=== PATIENT | male | born 1955 | race Caucasian/White ===

== ENCOUNTER → 2018-10-19 10:20 | Outpatient (CLI) | payer OTHER, SELFPAY ==
[2018-10-19 11:01] LABS: Add Manual Diff / Slide Review NO; Basophils Absolute Auto 0 /uL (0-100); Basophils Percent Auto 0.8 % (0-2); Eosinophils Absolute Auto 300 /uL (0-450); Eosinophils Percent Auto 5.9 % (2-4); Hematocrit 43.1 % (41-53); Hemoglobin 14.7 g/dL (13.5-17.5); Lymphocytes Absolute Auto 1500 /uL (1100-4500); Lymphocytes Percent Auto 31.9 % (25-40); Mean Corpuscular HGB Conc 34.1 % (30-36); Mean Corpuscular Hemoglobin 32.7 PG (26-34); Mean Corpuscular Volume 96.1 fL (80-100); Monocytes Absolute Auto 600 /uL (0-900); Monocytes Percent Auto 12.3 % (3-14); Neutrophils Absolute Auto 2300 /uL (1500-7000); Neutrophils Percent Auto 49.1 % (50-75); Platelet Count 145 X10^3/uL (150-400); Red Blood Cell Count 4.48 X10^6/uL (4.5-5.9); Red Cell Distribution Width 12.9 % (11.6-14.8); White Blood Cell Count 4.8 X10^3/uL (4.5-11.0)
[2018-10-19 11:18] LABS: Alanine Aminotransferase 30 IU/L (21-72); Albumin 4.4 g/dL (3.5-5.0); Albumin Globulin Ratio 1.4 (1.0-2.8); Alkaline Phosphatase 53 U/L (38-126); Aspartate Aminotransferase 25 IU/L (17-59); BUN Creatinine Ratio 21.1 (6-22); Bilirubin Total 0.9 mg/dL (0.2-1.3); Blood Urea Nitrogen 19 mg/dL (9-20); Carbon Dioxide 27 mmol/L (22-32); Chloride 103 mmol/L (98-107); Cholesterol 188 mg/dL (140-199); Estimated Glomerular Filt Rate > 60.0 mL/min (>60); Globulin 3.1 g/dL (1.7-4.1); Glucose 99 mg/dL (80-110); HDL Cholesterol 55 mg/dL (40-60); HEMOLYSIS < 15 (0-50); LDL Cholesterol Calculated 102 mg/dL (<100); Potassium 5.1 mmol/L (3.4-5.1); Sodium 139 mmol/L (137-145); Total Protein 7.5 g/dL (6.3-8.2); Triglycerides 154 mg/dL (35-150)
[2018-10-19 11:48] LABS: Prostate Specific Antigen Scrn 3.24 ng/mL (0.1-4.0)
== END ==
PROVIDERS: PCP Family Medicine; Visit Provider Family Medicine
DX: E78.5 Hyperlipidemia, unspecified (principal); Z12.5 Encounter for screening for malignant neoplasm of prostate
CPT/HCPCS: 36415; 80053; 80061; 85025; G0103

== ENCOUNTER → 2018-12-06 07:35 | Outpatient (CLI) | payer OTHER, SELFPAY ==
--- NOTE | 2018-12-06 08:49 | PM.TREADMILL ---
Cardiac Stress Test Report Referral & Results Date Patient Seen: 12/06/18 Time Patient Seen: 08:30 Requesting provider: Juan Riley Indication: SOB Rest ECG: NSR Procedure Note: Today following both written and verbal informed consent, the patient was exercised according to a standard Luis protocol. The patient exercised for a total of 9 minutes achieving a maximum heart rate of 157. Patient's maximum systolic blood pressure was 180. This was an estimated 10.1 METs. O2 saturation was greater than 95% at all times. Impression: Low probability for ischemia. Yun treadmill score 9 predicts 97% survival over 5 years. Please note: Actual ECG tracings can be found in the PACS system.
== END ==
PROVIDERS: PCP Family Medicine; Visit Provider Family Medicine
DX: R06.02 Shortness of breath (principal)
CPT/HCPCS: 93016; 93017; 93018

== ENCOUNTER 2019-02-08 08:46 | Day surgery (SDC) | payer OTHER, SELFPAY ==
[2019-02-08 09:24] VITALS: BP 138/97; PULSE 87; RESP 15; TEMP 36.4; O2SAT 96; BMI 35.8
[2019-02-08] MEDS: SODIUM CHLORIDE 0.9% 1,000 ML 200 ML IV (09:32)
--- NOTE | 2019-02-08 09:43 | PM.HP.1 ---
History of Present Illness History of Present Illness Date Patient Seen: 02/08/19 Time Patient Seen: 09:43 Chief complaint: [id number] Narrative: This is a 63-year-old man with history of a colonoscopy at age 46 because of high risk family history. At that time he was told he had no polyps and no findings on his colonoscopy and he could have a repeat colonoscopy in 10 years. Because extenuating circumstances he has not been able to schedule colonoscopy until now. He denies any symptoms of hematochezia, melena, unexplained weight loss, unexplained abdominal pain. His father was diagnosed with colon cancer at age 77. He says he is otherwise well, he has never had a heart attack or stroke. He recently had a cardiac stress test which was essentially normal. ROS: Review of systems positive for cough, shortness of breath (related to pneumonia 1 year ago), reflux symptoms, constipation, headaches, anxiety, urinary frequency, urgency, incontinence. Otherwise 10 system review was negative other than as mentioned in the HPI. PE: GENERAL: Well groomed and cooperative. Appears stated age. Answers questions promptly and appropriately. Vital signs noted. HENT: Normocephalic, atraumatic. Hearing intact. Oral mucosa is pink and moist. EYES: Conjunctiva pink, sclera white, no periorbital swelling. CARDIOVASCULAR: Regular rate. No pedal edema. RESPIRATORY: Non tachypneic, breathing comfortably on room air. GASTROINTESTINAL: Abdomen soft and non-distended GENITALURINARY: No flank tenderness. MUSCULOSKELETAL: Equal tone and mass bilaterally. SKIN: Warm, dry, soft, appropriate color for ethnicity. No other lesions, rashes, or wounds. NEURO: Alert and Oriented X 3. No gross sensory deficits, or cognitive issues. PSYCH: Appropriate affect and mood. Patient History Family & Social History Family History Father Cancer Mother Hypertension Mental health problem Sister Hypertension High cholesterol Stroke Social History: household members significant other,other Tobacco & Substance use: Smoking Status Never smoker Meds Home Medications and Allergies Home Medications Medication Instructions Recorded Confirmed Type lisinopril 20 mg tablet 20 mg PO QDAY #90 tab 09/10/18 02/08/19 Rx etodolac 400 mg tablet 400 mg PO BID PRN #60 tab 10/25/18 02/08/19 Rx fluoxetine 20 mg tablet 60 mg PO Q DAY #270 tab 10/25/18 02/08/19 Rx hydroxyzine HCl 25 mg tablet 25 mg PO Q6H PRN #180 tab 10/25/18 02/08/19 Rx lovastatin 20 mg tablet 20 mg PO DAILY #90 tab 10/25/18 02/08/19 Rx tamsulosin 0.4 mg capsule 0.8 mg PO QDAY #180 cap 10/25/18 02/08/19 Rx valacyclovir 500 mg tablet 500 mg PO QDAY #90 tab 10/25/18 02/08/19 Rx zolpidem 5 mg tablet 5 mg PO HS PRN #30 tab 10/25/18 02/08/19 Rx clonazepam 0.5 mg PO PRN PRN 02/08/19 02/08/19 History Allergies Allergy/AdvReac Type Severity Reaction Status Date / Time codeine Allergy Severe THROAT Verified 02/08/19 09:14 SWELLING Penicillins Allergy Mild REACTION Verified 02/08/19 09:14 A CHILD-UNKNOWN Exam Vital Signs (past 8 hours): - 02/08/19 09:24 Temperature 97.6 F Pulse Rate 87 Respiratory Rate 15 Blood Pressure 138/97 H Pulse Oximetry 96 Oxygen Delivery Method Room Air Assessment & Plan Assessment and plan (1) High risk for colon cancer: Current visit: Yes Status: Acute Assessment & Plan narrative: This is a 63-year-old man with elevated risk for colon cancer due to family history. He is here for high risk screening colonoscopy possible polypectomy. Risks and benefits of this procedure were discussed including bleeding, perforation, risks of anesthesia. The patient desires to proceed with colonoscopy and possible polypectomy. Plan: Proceed with the above as discussed Time Spent With Patient Time with patient: 25 - 35 minutes Quality VTE Deep Vein Thrombosis/Pulmonary Embolism Present on Admission: No
[2019-02-08] MEDS: fentaNYL 250 MCG/5 ML INJ IV (09:49)
[2019-02-08] MEDS: MIDAZOLAM 5 MG/5 ML VIAL IV (09:50)
--- NOTE | 2019-02-08 10:13 | PM.OP.ENDO ---
Operative Date/Time/Diagnoses Date of procedure: 02/08/19 Time of procedure: 10:13 Pre-op diagnosis: High risk family history for colon cancer Post-op diagnosis: same Procedure & Clinicians Study performed: High risk screening colonoscopy Same procedure as scheduled: Yes Indications: family history of colon cancer Surgeon: Veronika Daley Procedure Notes SCOAP/Timeout: Performed Procedure in detail: The patient was brought to the room and placed in left lateral decubitus position with all bony prominences padded. A time-out was performed and then the patient was given procedural sedation starting with 5 mg of Versed and [150] mcg of fentanyl. Vitals were monitored throughout the procedure and remained stable. Once adequately sedated the procedure was begun. A rectal exam was performed revealing [no abnormalities]. The colonoscope was then introduced to the rectum and advanced to the cecum in the usual fashion. []The cecum was identified by the appendiceal orifice, the mucosal try fold, and the ileocecal valve. The scope was then retracted while rotating side to side and examining each mucosal fold. [There was moderate diverticulosis in the right colon and severe diverticulosis in the left colon with signs of scarring secondary to diverticulitis. No active diverticulitis was seen at this time. Diverticula were small medium and large mouth and were found quite extensively throughout the descending and sigmoid colon. No polyps were seen.] At the conclusion procedure retroflexion was performed and [small grade 2 internal hemorrhoids without stigmata of bleeding were seen]. The scope was then withdrawn from the rectum the procedure was concluded. The patient tolerated the procedure well was transferred to the PACU in stable condition. Scope withdrawal time: 12 Sedation minutes: 24 Findings: diverticulosis Specimen(s): none sent Complications: none Impression: Extensive diverticulosis with scarring and thickening of the colon consistent with prior diverticulitis Post-procedure Recommendations: Colonscopy in 10 years Plan for aftercare: Add fiber supplement such as Metamucil or Benefiber once to twice daily Follow up: as needed Disposition: PACU
[2019-02-08 10:18] VITALS: BP 121/84; PULSE 74; RESP 15; TEMP 36.7; O2SAT 97
[2019-02-08 10:24] VITALS: BP 126/80; PULSE 79; RESP 13; O2SAT 96
[2019-02-08 10:28] VITALS: BP 133/93; PULSE 89; RESP 15; O2SAT 95
[2019-02-08 10:34] VITALS: BP 121/80; PULSE 77; RESP 16; TEMP 36.3; O2SAT 95
[2019-02-08 10:50] VITALS: BP 131/78; PULSE 77; RESP 16; O2SAT 97
== END 2019-02-08 10:50 | disposition home or self-care (01) ==
PROVIDERS: Family Provider Family Medicine; PCP Family Medicine; Visit Provider Surgery
PROC: 0DJD8ZZ Inspection of Lower Intestinal Tract, Via Natural or Artificial Opening Endoscopic (ICD-10-PCS; CPT 45378; principal; 2019-02-08 09:45)
DX: Z12.11 Encounter for screening for malignant neoplasm of colon (principal); Z80.0 Family history of malignant neoplasm of digestive organs; K57.30 Diverticulosis of large intestine without perforation or abscess without bleeding; K64.0 First degree hemorrhoids
CPT/HCPCS: 45378; 99152; J2250; J3010

== ENCOUNTER → 2020-05-14 16:36 | Outpatient (CLI) | payer OTHER, SELFPAY ==
[2020-05-14 17:19] LABS: Add Manual Diff / Slide Review NO; Basophils Absolute Auto 100 /uL (0-100); Basophils Percent Auto 0.9 % (0-2); Eosinophils Absolute Auto 300 /uL (0-450); Eosinophils Percent Auto 4.9 % (2-4); Hematocrit 42.4 % (41-53); Lymphocytes Absolute Auto 1700 /uL (1100-4500); Lymphocytes Percent Auto 25.9 % (25-40); Mean Corpuscular Hemoglobin 31.6 PG (26-34); Monocytes Absolute Auto 800 /uL (0-900); Neutrophils Absolute Auto 3600 /uL (1500-7000); Neutrophils Percent Auto 56.3 % (50-75); Platelet Count 165 X10^3/uL (150-400); Red Blood Cell Count 4.42 X10^6/uL (4.5-5.9); Red Cell Distribution Width 12.8 % (11.6-14.8); White Blood Cell Count 6.4 X10^3/uL (4.5-11.0)
[2020-05-14 17:36] LABS: Alanine Aminotransferase 22 IU/L (<50); Albumin 4.5 g/dL (3.5-5.0); Albumin Globulin Ratio 1.4 (1.0-2.8); Alkaline Phosphatase 65 U/L (38-126); Aspartate Aminotransferase 28 IU/L (17-59); BUN Creatinine Ratio 22.8 (6-22); Bilirubin Total 0.3 mg/dL (0.2-1.3); Blood Urea Nitrogen 23 mg/dL (9-20); Calcium 10.1 mg/dL (8.4-10.2); Carbon Dioxide 29 mmol/L (22-32); Chloride 103 mmol/L (98-107); Estimated Glomerular Filt Rate > 60.0 mL/min (>60); Globulin 3.3 g/dL (1.7-4.1); Glucose 104 mg/dL (80-110); HEMOLYSIS < 15 (0-50); Potassium 4.5 mmol/L (3.4-5.1); Sodium 139 mmol/L (137-145); Total Protein 7.8 g/dL (6.3-8.2)
[2020-05-14 17:53] LABS: Vitamin D 25 Hydroxy (D3) 22.8 ng/mL (30.0-100.0)
[2020-05-14 18:05] LABS: Prostate Specific Antigen Scrn 4.55 ng/mL (0.1-4.0)
== END ==
PROVIDERS: Family Provider Family Medicine; PCP Student in an Organized Health Care Education/Training Program; Referring Provider Student in an Organized Health Care Education/Training Program; Visit Provider Student in an Organized Health Care Education/Training Program
DX: I10 Essential (primary) hypertension (principal); R73.9 Hyperglycemia, unspecified; Z12.5 Encounter for screening for malignant neoplasm of prostate; Z79.899 Other long term (current) drug therapy; E55.9 Vitamin D deficiency, unspecified
CPT/HCPCS: 36415; 80053; 82306; 85025; G0103

== ENCOUNTER → 2022-05-23 15:54 | Outpatient (CLI) | payer MEDICARE, OTHER, SELFPAY ==
[2022-05-23 16:54] LABS: Add Manual Diff / Slide Review NO; Basophils Absolute Auto 0 /uL (0-100); Basophils Percent Auto 0.7 % (0-2); Eosinophils Absolute Auto 200 /uL (0-450); Eosinophils Percent Auto 5.5 % (2-4); Hematocrit 42.5 % (41-53); Hemoglobin 14.5 g/dL (13.5-17.5); Lymphocytes Absolute Auto 1400 /uL (1100-4500); Lymphocytes Percent Auto 32.9 % (25-40); Mean Corpuscular Hemoglobin 32.6 PG (26-34); Mean Corpuscular Volume 95.8 fL (80-100); Monocytes Absolute Auto 600 /uL (0-900); Monocytes Percent Auto 15.6 % (3-14); Neutrophils Absolute Auto 1900 /uL (1500-7000); Neutrophils Percent Auto 45.3 % (50-75); Platelet Count 150 X10^3/uL (150-400); Red Blood Cell Count 4.43 X10^6/uL (4.5-5.9); Red Cell Distribution Width 13.1 % (11.6-14.8); White Blood Cell Count 4.2 X10^3/uL (4.5-11.0)
[2022-05-23 17:04] LABS: Alanine Aminotransferase 35 IU/L (<50); Albumin 4.4 g/dL (3.5-5.0); Albumin Globulin Ratio 1.3 (1.0-2.8); Alkaline Phosphatase 58 U/L (38-126); Aspartate Aminotransferase 32 IU/L (17-59); BUN Creatinine Ratio 15.9 (6-22); Bilirubin Total 0.7 mg/dL (0.2-1.3); Blood Urea Nitrogen 13 mg/dL (9-20); Calcium 9.8 mg/dL (8.4-10.2); Carbon Dioxide 28 mmol/L (22-32); Chloride 103 mmol/L (98-107); Cholesterol 184 mg/dL (140-199); Estimated Glomerular Filt Rate > 60 mL/min (>60); Globulin 3.5 g/dL (1.7-4.1); Glucose 95 mg/dL (80-110); HDL Cholesterol 48 mg/dL (40-60); HEMOLYSIS < 15 (0-50); LDL Cholesterol Calculated 86 mg/dL (<100); Potassium 4.4 mmol/L (3.4-5.1); Sodium 139 mmol/L (137-145); Total Protein 7.9 g/dL (6.3-8.2); Triglycerides 251 mg/dL (35-150)
[2022-05-23 17:24] LABS: Vitamin D 25 Hydroxy (D3) 26.4 ng/mL (30.0-100.0)
[2022-05-23 17:31] LABS: Prostate Specific Antigen Scrn 4.19 ng/mL (0.1-4.0)
[2022-05-23 17:36] LABS: TSH w/ Reflex to FT4 1.96 uIU/mL (0.47-4.68)
[2022-05-23 18:00] LABS: Hep C Virus Ab w/Reflex Quant NEGATIVE s/c (NEGATIVE)
[2022-06-05 21:37] LABS: Testosterone % Fr + Wkly bound 10.8 % (9.0-46.0); Testosterone, Total 296.2 ng/dL (264.0-916.0)
== END ==
PROVIDERS: Family Provider Family Medicine; PCP Student in an Organized Health Care Education/Training Program; Referring Provider Student in an Organized Health Care Education/Training Program; Visit Provider Student in an Organized Health Care Education/Training Program
DX: I10 Essential (primary) hypertension (principal); Z12.5 Encounter for screening for malignant neoplasm of prostate; I16.0 Hypertensive urgency; E55.9 Vitamin D deficiency, unspecified; Z11.59 Encounter for screening for other viral diseases; N52.9 Male erectile dysfunction, unspecified
CPT/HCPCS: 36415; 80053; 80061; 82306; 84403; 84443; 85025; 86803; G0103

== ENCOUNTER → 2022-08-29 16:34 | Outpatient (CLI) | payer MEDICARE, OTHER, SELFPAY ==
--- NOTE | 2022-08-29 17:04 | DI.RAD.S_ITS ---
PROCEDURE: XR CHEST 2V INDICATIONS: LOMBARDI TECHNIQUE: 2 views of the chest were acquired. COMPARISON: [facility], , CHEST 1 VIEW, 06/28/2016, 16:48. FINDINGS: Surgical changes and devices: None. Lungs and pleura: Lungs are clear. No pleural effusions or pneumothorax. Mediastinum: Mediastinal contours are normal. Heart size is normal. Bones and chest wall: No suspicious bony abnormalities. Soft tissues appear unremarkable. IMPRESSION: No acute cardiopulmonary pathology. Dictated by: Luis A Raines M.D. on 08/30/2022 at 9:00 Approved by: Luis A Raines M.D. on 08/30/2022 at 9:12
[2022-08-29 18:06] LABS: Add Manual Diff / Slide Review NO; Basophils Absolute Auto 0 /uL (0-100); Basophils Percent Auto 0.6 % (0-2); Eosinophils Absolute Auto 100 /uL (0-450); Eosinophils Percent Auto 2.3 % (2-4); Hematocrit 43.8 % (41-53); Lymphocytes Absolute Auto 2100 /uL (1100-4500); Lymphocytes Percent Auto 36.5 % (25-40); Mean Corpuscular HGB Conc 34.3 % (30-36); Mean Corpuscular Hemoglobin 32.6 PG (26-34); Mean Corpuscular Volume 95.1 fL (80-100); Monocytes Absolute Auto 900 /uL (0-900); Monocytes Percent Auto 15.1 % (3-14); Neutrophils Absolute Auto 2600 /uL (1500-7000); Neutrophils Percent Auto 45.5 % (50-75); Platelet Count 167 X10^3/uL (150-400); Red Cell Distribution Width 12.9 % (11.6-14.8); White Blood Cell Count 5.7 X10^3/uL (4.5-11.0)
[2022-08-29 18:08] LABS: Alanine Aminotransferase 46 IU/L (<50); Albumin 4.8 g/dL (3.5-5.0); Albumin Globulin Ratio 1.4 (1.0-2.8); Alkaline Phosphatase 55 U/L (38-126); Aspartate Aminotransferase 37 IU/L (17-59); BUN Creatinine Ratio 20.2 (6-22); Bilirubin Total 0.7 mg/dL (0.2-1.3); Blood Urea Nitrogen 19 mg/dL (9-20); Calcium 9.9 mg/dL (8.4-10.2); Carbon Dioxide 26 mmol/L (22-32); Chloride 101 mmol/L (98-107); Creatine Kinase 68 U/L (55-170); Estimated Glomerular Filt Rate > 60 mL/min (>60); Globulin 3.4 g/dL (1.7-4.1); Glucose 99 mg/dL (80-110); HEMOLYSIS 20 (0-50); Potassium 4.2 mmol/L (3.4-5.1); Sodium 137 mmol/L (137-145); Total Protein 8.2 g/dL (6.3-8.2)
[2022-08-29 18:11] LABS: High Sensitivity CRP - Cardiac 0.4 mg/L (1.0-3.0)
[2022-08-29 18:39] LABS: Erythrocyte Sedimentation Rate 4 MM/HR (0-15)
== END ==
PROVIDERS: Family Provider Family Medicine; PCP Pediatrics; Referring Provider Pediatrics; Visit Provider Pediatrics
DX: I10 Essential (primary) hypertension (principal); R06.09 Other forms of dyspnea; R53.83 Other fatigue
CPT/HCPCS: 36415; 71046; 80053; 82550; 85025; 85651; 86140; 93005

== ENCOUNTER → 2022-09-21 13:44 | Outpatient (CLI) | payer MEDICARE, OTHER, SELFPAY ==
--- NOTE | 2022-09-21 13:46 | DI.ECHO.S_ITS ---
[facility]---------+ [facility] +---------+ : : [address] : : : : [id number] : : : : Phone: [phone]+ Echocardiogram Report + + :Name: TONY MASON Study Date: 09/21/2022 Height: 72 in : :[facility] ReadingLocation: Weight: 278 lb : : Gender: Male BSA: 2.5 m2 : :: 1955 Age: 67 yrs BP: 123/95 mmHg: :Reason For Study: DYSPNEA ON EXERTION : :Ordering Physician: TITUS, : :JIMMY Liu Performed By: Jayshree Li : :Referring: JIMMY QURESHI : + + Interpretation Summary 1) Normal left ventricular thickness, size, wall motion, and systolic function (EF 60-65%). 2) Upper normal right ventricular size with normal function. 3) There is mild aortic regurgitation. 4) The ascending aorta is severely enlarged at 5.2cm. 5) No prior Echo available for comparison. Procedure: A two-dimensional transthoracic echocardiogram with color flow and Doppler was performed. The study quality was technically adequate. There is no prior echocardiogram noted for this patient. The patient was in sinus rhythm with heart rates between 69-78 bpm during the exam. Left Ventricle: The left ventricle is normal in size and wall thickness. The ejection fraction is estimated to be 55-60%. There are no focal wall motion abnormalities. Right Ventricle: The right ventricle is at the upper limits of normal in size. The right ventricular systolic function is normal. Atria: The left atrial size is normal. Right atrial size is normal. There is no Doppler evidence for an interatrial shunt. Mitral Valve: The mitral valve leaflets appear borderline thickened, but open well. There is trace mitral regurgitation. Aortic Valve: The aortic valve is trileaflet. The aortic valve opens well. There is no aortic valve stenosis. There is mild aortic regurgitation. Tricuspid Valve: The tricuspid valve is normal in structure and function. There is trace tricuspid regurgitation. The right ventricular systolic pressure is estimated to be at least 21 mmHg based on an estimated right atrial pressure of 3 mm Hg. Pulmonic Valve: The pulmonic valve is not well visualized. There is no pulmonic valvular regurgitation. Great Vessels: The aortic root is moderately dilated. The ascending aorta is severely enlarged. The IVC is of normal diameter and collapses greater than 50% with a sniff. This suggests a low right atrial pressure of 3 mm Hg. Pericardium/ Pleura There is no pericardial effusion. There is no pleural effusion. MMode/2D Measurements & Calculations LVIDd: 4.6 cm LVOT diam: 2.2 cm LVIDs: 2.9 cm Ao root diam: 4.5 cm FS: 36.5 % asc Aorta Diam: 5.2 cm EPSS: 0.79 cm Ao Arch Diam (Prox Trans): 4.1 cm IVSd: 0.99 cm LVPWd: 0.92 cm LV beckman. diameter/BSA (cm/m^2): 1.9 LV sys. diameter/BSA (cm/m^2): 1.2 LA A2 area: 18.1 cm2 RA long axis: 5.1 cm LA A4 area: 9.7 cm2 RA area: 12.1 cm2 LA length (vol): 4.1 cm RA vol: 24.3 ml LA vol: 36.5 ml RA : 9.9 ml/m2 LA vol index: 14.9 ml/m2 IVC diam: 1.6 cm RVD1 (basal): 4.0 cm RVD2 (mid): 3.4 cm TAPSE: 2.3 cm Doppler Measurements & Calculations Ao V2 max: 139.3 cm/sec LVOT Max Vidal: 104.5 cm/sec Ao V2 mean: 103.7 cm/sec LV V1 max P.4 mmHg Ao max P.8 mmHg LV V1 VTI: 21.3 cm Ao mean P.7 mmHg JAVIER(I,D): 3.2 cm2 Ao V2 VTI: 25.6 cm JAVIER(V,D): 2.8 cm2 sev ratio: 0.83 JAVIER indexed to BSA (cm^2/m^2): 1.3 AI P1/2t: 940.5 msec AI dec slope: 139.8 cm/sec2 MV E max vidal: 47.2 cm/sec TR max vidal: 212.3 cm/sec MV A max vidal: 73.2 cm/sec TR max P.0 mmHg MV E/A: 0.64 PA V2 max: 86.8 cm/sec Med Peak E' Vidal: 4.4 cm/sec PA V2 mean: 62.7 cm/sec E/E' med: 10.7 PA mean P.8 mmHg Lat Peak E' Vidal: 10.0 cm/sec PA pr(Accel): 22.5 mmHg E/E' lat: 4.7 E/e' average: 7.7 MV dec time: 0.30 sec SV(LVOT): 81.0 ml Reading Physician:05:07 PM
== END ==
PROVIDERS: Family Provider Family Medicine; PCP Pediatrics; Referring Provider Pediatrics; Visit Provider Pediatrics
DX: I35.1 Nonrheumatic aortic (valve) insufficiency (principal); I77.89 Other specified disorders of arteries and arterioles; I77.810 Thoracic aortic ectasia; I10 Essential (primary) hypertension; R06.09 Other forms of dyspnea
CPT/HCPCS: 93306

== ENCOUNTER → 2022-10-05 11:45 | Outpatient (CLI) | payer MEDICARE, OTHER, SELFPAY ==
[2022-10-05 13:26] LABS: Add Manual Diff / Slide Review NO; Basophils Absolute Auto 0 /uL (0-100); Basophils Percent Auto 0.8 % (0-2); Eosinophils Absolute Auto 600 /uL (0-450); Eosinophils Percent Auto 10.8 % (2-4); Hematocrit 40.6 % (41-53); Hemoglobin 14.1 g/dL (13.5-17.5); Lymphocytes Absolute Auto 1900 /uL (1100-4500); Lymphocytes Percent Auto 33.8 % (25-40); Mean Corpuscular HGB Conc 34.8 % (30-36); Mean Corpuscular Hemoglobin 32.9 PG (26-34); Mean Corpuscular Volume 94.6 fL (80-100); Monocytes Absolute Auto 600 /uL (0-900); Neutrophils Absolute Auto 2500 /uL (1500-7000); Neutrophils Percent Auto 43.6 % (50-75); Platelet Count 144 X10^3/uL (150-400); Red Blood Cell Count 4.29 X10^6/uL (4.5-5.9); Red Cell Distribution Width 12.6 % (11.6-14.8); White Blood Cell Count 5.6 X10^3/uL (4.5-11.0)
[2022-10-05 13:49] LABS: BUN Creatinine Ratio 17.4 (6-22); Blood Urea Nitrogen 16 mg/dL (9-20); Calcium 9.4 mg/dL (8.4-10.2); Carbon Dioxide 27 mmol/L (22-32); Chloride 102 mmol/L (98-107); Cholesterol 184 mg/dL (140-199); Estimated Glomerular Filt Rate > 60 mL/min (>60); Glucose 93 mg/dL (80-110); HDL Cholesterol 44 mg/dL (40-60); HEMOLYSIS < 15 (0-50); LDL Cholesterol Calculated 88 mg/dL (<100); Potassium 4.5 mmol/L (3.4-5.1); Sodium 138 mmol/L (137-145); Triglycerides 262 mg/dL (35-150)
== END ==
PROVIDERS: Family Provider Family Medicine; PCP Pediatrics; Referring Provider Internal Medicine Cardiovascular Disease; Visit Provider Internal Medicine Cardiovascular Disease
DX: E78.5 Hyperlipidemia, unspecified (principal); I10 Essential (primary) hypertension
CPT/HCPCS: 36415; 80048; 80061; 85025

== ENCOUNTER → 2022-10-06 13:15 | Outpatient (CLI) | payer MEDICARE, OTHER, SELFPAY ==
--- NOTE | 2022-10-06 | DI.CT.S_ITS ---
PROCEDURE: CT ANGIO CHEST INDICATIONS: Other specified disorders of arteries and arterioles TECHNIQUE: After the administration of intravenous contrast, 2.5 mm thick sections acquired from the lung apices to the posterior lung bases. Maximum intensity projection (MIP) oblique sagittal reformats were then acquired parallel to the aortic arch. For radiation dose reduction, the following was used: automated exposure control. COMPARISON: None. FINDINGS: Aorta: Ascending aortic aneurysm present with the aorta measuring 5.2 cm in diameter measured at the level of the right pulmonary artery. At the arch, aortic diameter is 3.3 cm, diameter of proximal descending thoracic aorta is 2.7 cm, diameter of distal descending thoracic aorta is 2.6 cm. Mediastinum: No pericardial effusion. No mediastinal or hilar adenopathy by size criteria. Central pulmonary arteries are normal in size. Esophagus is normal in caliber. Lungs and pleura: No consolidation or pleural effusion. Bones and chest wall: No axillary adenopathy by size criteria. Multilevel degenerative change of the visualized spine. Abdomen: Visualized upper abdominal solid organs and bowel loops appear unremarkable. IMPRESSION: Ascending aortic aneurysm measuring up to 5.2 cm. Dictated by: Abdi Campos M.D. on 10/06/2022 at 15:30 Approved by: Abdi Campos M.D. on 10/06/2022 at 15:39
== END ==
PROVIDERS: Family Provider Family Medicine; PCP Pediatrics; Referring Provider Internal Medicine Cardiovascular Disease; Visit Provider Internal Medicine Cardiovascular Disease
DX: I71.21 Aneurysm of the ascending aorta, without rupture (principal); I77.89 Other specified disorders of arteries and arterioles
CPT/HCPCS: 71275; Q9967

== ENCOUNTER → 2023-03-31 17:20 | Outpatient (CLI) | payer MEDICARE, OTHER, SELFPAY ==
--- NOTE | 2023-03-31 17:22 | DI.RAD.S_ITS ---
PROCEDURE: XR CHEST 2V INDICATIONS: cough, fatigue, hx frequent pna TECHNIQUE: 2 views of the chest were acquired. COMPARISON: [facility], CR, XR CHEST 2V, 08/29/2022, 17:12. FINDINGS: Surgical changes and devices: None. Lungs and pleura: Multifocal opacities in the left mid and lower lung are concerning for pneumonia. No pleural effusions or pneumothorax. Mediastinum: Mediastinal contours are normal. Heart size is normal. Bones and chest wall: No suspicious bony abnormalities. Soft tissues appear unremarkable. IMPRESSION: Multifocal opacities in the left mid /lower lung zones are concerning for pneumonia. Recommend repeat radiographs in 4-6 weeks after definitive treatment to demonstrate resolution. Approved by: Saloni Heredia M.D. on 03/31/2023 at 18:01
== END ==
PROVIDERS: Family Provider Family Medicine; PCP Pediatrics; Referring Provider Student in an Organized Health Care Education/Training Program; Visit Provider Student in an Organized Health Care Education/Training Program
DX: R05.8 Other specified cough (principal); R05.1 Acute cough
CPT/HCPCS: 0241U; 71046

== ENCOUNTER → 2023-03-31 17:33 | Outpatient (CLI) | payer MEDICARE, OTHER, SELFPAY ==
[2023-03-31 18:46] LABS: Influenza A - CEPHEID Flu A NEGATIVE (NEGATIVE); Influenza B - CEPHEID Flu B NEGATIVE (NEGATIVE); Respiratory Syncytial Virus Negative (Negative)
[2023-03-31 18:47] LABS: COVID-19 CEPHEID 4-PLEX PCR Negative (Negative)
== END ==
PROVIDERS: Family Provider Family Medicine; PCP Pediatrics; Visit Provider Student in an Organized Health Care Education/Training Program
DX: R05.1 Acute cough (principal)
CPT/HCPCS: 0241U

== ENCOUNTER → 2023-08-25 12:20 | Outpatient (CLI) | payer MEDICARE, OTHER, SELFPAY ==
--- NOTE | 2023-08-25 12:22 | DI.ECHO.S_ITS ---
[facility] : : [address] : [place] [address] : : [id number] : : Phone: [phone] Echocardiogram Report + + :Name: TONY MASON Study Date: 08/25/2023 Height: 72 in : :Hospital ReadingLocation: Weight: 278 lb : : Gender: Male BSA: 2.5 m2 : :: 1955 Age: 68 yrs BP: 147/100 mmHg: :Reason For Study: OTHER SPECIFIED DISORDERS OF ARTERIES AND : :ARTERIOLS : :Ordering Physician: JENNIFER, : :SOFIYA Performed By: Jayshree Li : :Referring: SOFIYA TIWARI : + + Interpretation Summary 1) Upper normal left ventricular size with low normal systolic function (EF 50-55%). 2) Normal right ventricular size and function. 3) There is mild to moderate aortic regurgitation. 4) The ascending aorta is severely enlarged at 5.4cm-5.5cm. 5) Compared to the Echo done 09/21/2022, ascending aorta enlargement has increased from 5.2cm to 5.4-5.5cm. Recommend CTA chest for further evaluation. Procedure: A two-dimensional transthoracic echocardiogram with color flow and Doppler was performed. The study quality was technically adequate. Comparison is made with the echocardiogram of 09/21/2022. The patient was in sinus rhythm with heart rates between 58-69 bpm during the exam. Left Ventricle: The left ventricle is normal in size and wall thickness. The ejection fraction is estimated to be 50-55%. Right Ventricle: The right ventricle is normal in size and function. Atria: The left atrial size is normal. Right atrial size is normal. There is no Doppler evidence for an interatrial shunt. Mitral Valve: The mitral valve is normal in structure and function. There is trace mitral regurgitation. Aortic Valve: The aortic valve is trileaflet. The aortic valve opens well. There is no aortic valve stenosis. There is mild to moderate aortic regurgitation. Tricuspid Valve: The tricuspid valve is normal in structure and function. There is trace tricuspid regurgitation. The right ventricular systolic pressure is estimated to be at least 25 mmHg based on an estimated right atrial pressure of 3 mm Hg. Pulmonic Valve: The pulmonic valve is not well visualized. There is no pulmonic valvular regurgitation. Great Vessels: The aortic root is moderately dilated. The ascending aorta is severely enlarged. The IVC is of normal diameter and collapses greater than 50% with a sniff. This suggests a low right atrial pressure of 3 mm Hg. Pericardium/ Pleura There is no pericardial effusion. There is no pleural effusion. MMode/2D Measurements & Calculations LVIDd: 5.8 cm LVOT diam: 2.2 cm LVIDs: 3.6 cm Ao root diam: 4.5 cm FS: 37.0 % asc Aorta Diam: 5.4 cm IVSd: 0.84 cm Ao Arch Diam (Prox Trans): 3.6 cm LVPWd: 0.89 cm LV beckman. diameter/BSA (cm/m^2): 2.4 LV sys. diameter/BSA (cm/m^2): 1.5 LA A2 area: 23.2 cm2 RA long axis: 6.1 cm LA A4 area: 16.0 cm2 RA area: 17.5 cm2 LA length (vol): 5.1 cm RA vol: 43.2 ml LA vol: 62.4 ml RA : 17.6 ml/m2 LA vol index: 25.5 ml/m2 IVC diam: 1.7 cm RVD1 (basal): 3.4 cm TAPSE: 1.9 cm Doppler Measurements & Calculations Ao V2 max: 131.7 cm/sec LVOT Max Vidal: 104.2 cm/sec Ao V2 mean: 92.5 cm/sec LV V1 max P.3 mmHg Ao max P.9 mmHg LV V1 VTI: 23.0 cm Ao mean P.8 mmHg JAVIER(I,D): 3.1 cm2 Ao V2 VTI: 28.9 cm JAVIER(V,D): 3.1 cm2 sev ratio: 0.80 JAVIER indexed to BSA (cm^2/m^2): 1.3 AI P1/2t: 824.0 msec AI dec slope: 165.2 cm/sec2 MV E max vidal: 39.7 cm/sec TR max vidal: 231.7 cm/sec MV A max vidal: 57.8 cm/sec TR max P.5 mmHg MV E/A: 0.69 PA V2 max: 96.5 cm/sec Med Peak E' Vidal: 3.9 cm/sec PA V2 mean: 72.7 cm/sec E/E' med: 10.2 PA mean P.2 mmHg Lat Peak E' Vidal: 7.9 cm/sec PA pr(Accel): 27.6 mmHg E/E' lat: 5.0 E/e' average: 7.6 MV dec time: 0.36 sec SV(LVOT): 89.4 ml Reading Physician:04:08 PM
== END ==
PROVIDERS: Family Provider Family Medicine; PCP Family Medicine; Referring Provider Internal Medicine Cardiovascular Disease; Visit Provider Internal Medicine Cardiovascular Disease
DX: I35.1 Nonrheumatic aortic (valve) insufficiency (principal); I77.810 Thoracic aortic ectasia; I77.89 Other specified disorders of arteries and arterioles
CPT/HCPCS: 93306

== ENCOUNTER → 2023-09-04 10:17 | Outpatient (CLI) | payer MEDICARE, OTHER, SELFPAY ==
--- NOTE | 2023-09-04 10:19 | DI.CT.S_ITS ---
PROCEDURE: CT ANGIO CHEST INDICATIONS: Ascending aorta enlargement TECHNIQUE: After the administration of intravenous contrast, 2.5 mm thick sections acquired from the lung apices to the posterior lung bases. Maximum intensity projection (MIP) oblique sagittal reformats were then acquired parallel to the aortic arch. For radiation dose reduction, the following was used: automated exposure control. COMPARISON: [facility], CT, CT ANGIO CHEST, 10/06/2022, 13:30. FINDINGS: Image quality: Excellent. Aorta: The aortic root at the sinus of Valsalva measures 4.8 cm and the ascending thoracic aorta measures 5.2 cm in diameter. On the comparison CT dated October 06, 2022, the aortic root measures 4.6 cm in diameter at the sinus of Valsalva and 5.2 cm more superiorly. No atheromatous plaque or calcification. No aortic dissection. No wall thickening or periaortic fat stranding. Lower Neck: No enlarged lymph nodes. Thyroid: No thyroid nodules which require sonographic follow up, per consensus guidelines. Axillae: No enlarged lymph nodes. Chest Wall: Unremarkable. Bones: Unremarkable. Lungs and Pleura: No pneumothorax or pleural effusions. No consolidation or suspicious nodules. Heart: Heart size is normal. No pericardial effusion. Thoracic Vessels: Pulmonary arteries demonstrate normal size. Mediastinum and Izabel: No enlarged lymph nodes. Esophagus: No wall thickening. No hiatal hernia. Upper Abdomen: Visualized upper abdomen solid organs and bowel loops appear normal. IMPRESSION: 1. 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 There is a slight increase (2 mm) in the extent of ectasia at the sinus of Valsalva when compared with the prior study dated October 06, 2022. 2. No acute airspace opacities or pulmonary nodules which require follow-up. Dictated by: Wen Honeycutt M.D. on 09/04/2023 at 14:35 Approved by: Wen Honeycutt M.D. on 09/04/2023 at 14:45
[2023-09-04 10:45] LABS: Estimated Glomerular Filt Rate > 60 mL/min (>60)
== END ==
LOC: CT 10:18
PROVIDERS: Radiology Diagnostic Radiology; Family Provider Family Medicine; PCP Family Medicine; Referring Provider Internal Medicine Cardiovascular Disease; Visit Provider Internal Medicine Cardiovascular Disease
DX: I77.810 Thoracic aortic ectasia (principal); I77.89 Other specified disorders of arteries and arterioles
CPT/HCPCS: 36415; 71275; 82565; Q9967

== ENCOUNTER → 2023-10-18 12:25 | Outpatient (CLI) | payer MEDICARE, OTHER, SELFPAY ==
[2023-10-18 14:19] LABS: Add Manual Diff / Slide Review NO; Basophils Absolute Auto 0 /uL (0-100); Basophils Percent Auto 0.4 % (0-2); Eosinophils Absolute Auto 200 /uL (0-450); Eosinophils Percent Auto 2.5 % (2-4); Hematocrit 40.4 % (41-53); Lymphocytes Absolute Auto 1700 /uL (1100-4500); Lymphocytes Percent Auto 20.6 % (25-40); Mean Corpuscular HGB Conc 34.7 % (30-36); Mean Corpuscular Hemoglobin 33.5 PG (26-34); Mean Corpuscular Volume 96.7 fL (80-100); Monocytes Absolute Auto 800 /uL (0-900); Monocytes Percent Auto 9.7 % (3-14); Neutrophils Absolute Auto 5600 /uL (1500-7000); Neutrophils Percent Auto 66.8 % (50-75); Platelet Count 157 X10^3/uL (150-400); Red Blood Cell Count 4.17 X10^6/uL (4.5-5.9); Red Cell Distribution Width 13.7 % (11.6-14.8); White Blood Cell Count 8.4 X10^3/uL (4.5-11.0)
[2023-10-18 14:52] LABS: Alanine Aminotransferase 36 IU/L (<50); Albumin 4.2 g/dL (3.5-5.0); Albumin Globulin Ratio 1.5 (1.0-2.8); Alkaline Phosphatase 58 U/L (38-126); Aspartate Aminotransferase 33 IU/L (17-59); BUN Creatinine Ratio 15.1 (6-22); Bilirubin Total 0.8 mg/dL (0.2-1.3); Blood Urea Nitrogen 14 mg/dL (9-20); Calcium 9.6 mg/dL (8.4-10.2); Carbon Dioxide 25 mmol/L (22-32); Chloride 106 mmol/L (98-107); Cholesterol 212 mg/dL (140-199); Estimated Glomerular Filt Rate > 60 mL/min (>60); Globulin 2.8 g/dL (1.7-4.1); Glucose 91 mg/dL (80-110); HDL Cholesterol 53 mg/dL (40-60); HEMOLYSIS < 15 (0-50); LDL Cholesterol Calculated 113 mg/dL (<100); Potassium 4.5 mmol/L (3.4-5.1); Sodium 139 mmol/L (137-145); Triglycerides 229 mg/dL (35-150)
[2023-10-18 15:44] LABS: Creatinine Urine Random 123.68 mg/dL
[2023-10-18 15:50] LABS: Microalbumin Urine Random 1.5 mg/dL (0-1.6)
== END ==
PROVIDERS: Family Provider Family Medicine; PCP Family Medicine; Referring Provider Family Medicine; Visit Provider Family Medicine
DX: E78.2 Mixed hyperlipidemia (principal); I10 Essential (primary) hypertension
CPT/HCPCS: 36415; 80053; 80061; 82043; 82570; 85025

== ENCOUNTER → 2024-08-06 12:43 | Outpatient (CLI) | payer MEDICARE, OTHER, SELFPAY ==
[2024-08-06 13:09] LABS: Appearance Urine UA CLEAR; Bilirubin Urine UA NEGATIVE (NEGATIVE); Color Urine UA YELLOW; Glucose Urine UA NEGATIVE (Negative); Ketones Urine UA NEGATIVE (NEGATIVE); Leukocyte Esterase Urine UA NEGATIVE (NEGATIVE); Nitrite Urine UA NEGATIVE (Negative); Occult Blood Urine UA NEGATIVE (Negative); Protein Urine UA NEGATIVE (Negative); Urobilinogen Urine UA 0.2 E.U./dL (0.2); pH Urine UA 5.5 (4.5-8.0)
[2024-08-06 13:10] LABS: Hematocrit 42.7 % (41-53); Hemoglobin 14.5 g/dL (13.5-17.5); Mean Corpuscular Hemoglobin 33.3 PG (26-34); Platelet Count 155 X10^3/uL (150-400); Red Blood Cell Count 4.36 X10^6/uL (4.5-5.9); Red Cell Distribution Width 12.8 % (11.6-14.8); White Blood Cell Count 4.9 X10^3/uL (4.5-11.0)
[2024-08-06 13:25] LABS: Bacteria Urine None Seen; Culture Indicated Urine Cult Not Indicated; Erythrocyte Sedimentation Rate 4 MM/HR (0-15); RBC Urine None Seen (0-5/HPF); Squamous Epithelial Cell Urine None Seen (0-5/HPF); Urine Volume 10mL (spun); WBC Urine None Seen (0-5/HPF)
[2024-08-06 14:06] LABS: Alanine Aminotransferase 46 IU/L (<50); Albumin 4.6 g/dL (3.5-5.0); Albumin Globulin Ratio 1.4 (1.0-2.8); Alkaline Phosphatase 56 U/L (38-126); Aspartate Aminotransferase 47 IU/L (17-59); BUN Creatinine Ratio 13.9 (6-22); Blood Urea Nitrogen 14 mg/dL (9-20); C-Reactive Protein Quant < 0.5 mg/dL (<1.0); Calcium 9.8 mg/dL (8.4-10.2); Carbon Dioxide 26 mmol/L (22-32); Chloride 104 mmol/L (98-107); Cholesterol 200 mg/dL (140-199); Creatine Kinase 89 U/L (55-170); Estimated Glomerular Filt Rate > 60 mL/min (>60); Globulin 3.2 g/dL (1.7-4.1); Glucose 118 mg/dL (70-99); HDL Cholesterol 58 mg/dL (40-60); HEMOLYSIS < 15 (0-50); LDL Cholesterol Calculated 95 mg/dL (<100); Potassium 4.6 mmol/L (3.4-5.1); Sodium 137 mmol/L (137-145); Total Protein 7.8 g/dL (6.3-8.2); Triglycerides 233 mg/dL (35-150)
[2024-08-06 14:11] LABS: NT-proBNP (BNP-Adult 18+) 26 pg/mL (<125)
[2024-08-06 14:20] LABS: Free T4, Direct Thyroxine 0.84 ng/dL (0.78-2.19)
[2024-08-06 14:32] LABS: Prostate Specific Antigen 4.89 ng/mL (0.10-4.00)
[2024-08-06 14:34] LABS: TSH w/ Reflex to FT4 1.17 uIU/mL (0.47-4.68)
[2024-08-06 14:53] LABS: Vitamin B12 480 pg/mL (239-931)
[2024-08-06 18:00] LABS: Vitamin D 25 Hydroxy (D3) 37.9 ng/mL (30.0-100.0)
== END ==
PROVIDERS: Family Provider Family Medicine; PCP Family Medicine; Referring Provider Family Medicine; Visit Provider Family Medicine
DX: I10 Essential (primary) hypertension (principal); R06.02 Shortness of breath; N40.0 Benign prostatic hyperplasia without lower urinary tract symptoms; R53.83 Other fatigue; R06.83 Snoring; R06.09 Other forms of dyspnea; R36.9 Urethral discharge, unspecified
CPT/HCPCS: 36415; 80053; 80061; 81001; 82306; 82550; 82607; 83880; 84153; 84439; 84443; 85027; 85651; 86140

== ENCOUNTER → 2024-08-30 13:13 | Outpatient (CLI) | payer MEDICARE, OTHER, SELFPAY ==
--- NOTE | 2024-08-30 13:17 | DI.ECHO.S_ITS ---
[facility]---------+ [facility] : : [address] : [place] : : [id number] : : Phone: [phone] Echocardiogram Report + + :Name: TONY MASON Study Date: 08/30/2024 Height: 72 in : :[facility] ReadingLocation: Weight: 282 lb : : Gender: Male BSA: 2.5 m2 : :: 1955 Age: 69 yrs BP: 124/98 mmHg: :Reason For Study: ASCENDING AORTA ENLARGEMENT : :Ordering Physician: JENNIFER, : :SOFIYA Performed By: Timothy Curtis : :Referring: SOFIYA TIWARI : + + Interpretation Summary 1) Normal left ventricular size with low normal systolic function (EF 50-55%). 2) Mildly enlarged right ventricular with normal function. 3) There is mild to moderate aortic regurgitation. 4) The ascending aorta is severely enlarged at 5.6cm. 5) Compared to the Echo done 08/25/2023, ascending aorta enlargement has increased from 5.5cm to 5.6cm on this study. Procedure: A two-dimensional transthoracic echocardiogram with color flow and Doppler was performed. The study quality was technically good. Comparison is made with the echocardiogram of 08/25/2023. The patient was in normal sinus rhythm during the exam. Left Ventricle: The left ventricle is normal in size. Left ventricular wall thickness is borderline increased. There is no ventricular septal defect visualized. The ejection fraction is estimated to be 50-55%. There are no focal wall motion abnormalities. Diastolic parameters suggest a relaxation abnormality of the left ventricle, consistent with probable normal filling pressures. Right Ventricle: The right ventricle is mildly dilated. The right ventricular systolic function is normal. Atria: The left atrial size is normal. Right atrial size is normal. There is no Doppler evidence for an interatrial shunt. Mitral Valve: The mitral valve leaflets appear mildly thickened, but open well. There is mild mitral annular calcification. There is trace mitral regurgitation. Aortic Valve: The aortic valve is trileaflet. The aortic valve opens well. There is no aortic valve stenosis. There is moderate aortic regurgitation. Tricuspid Valve: The tricuspid valve leaflets are thin and pliable. There is mild tricuspid regurgitation. The right ventricular systolic pressure is estimated to be at least 33 mmHg based on an estimated right atrial pressure of 8 mm Hg. Pulmonic Valve: The pulmonic valve is not well seen, but is grossly normal. There is no pulmonic valvular regurgitation. Great Vessels: The aortic root is moderately dilated. The ascending aorta is severely enlarged. The pulmonary artery is normal size. The IVC is dilated (diameter is greater than 2.1 cm) yet it collapses greater than 50% with a sniff. This suggests a right atrial pressure of 8 mm Hg. Pericardium/ Pleura There is no pericardial effusion. MMode/2D Measurements & Calculations LVIDd: 5.3 cm LVOT diam: 2.5 cm LVIDs: 3.8 cm Ao root diam: 4.7 cm FS: 28.7 % asc Aorta Diam: 5.6 cm EPSS: 1.3 cm Ao Arch Diam (Prox Trans): 3.8 cm IVSd: 1.1 cm LVPWd: 1.0 cm LV beckman. diameter/BSA (cm/m^2): 2.2 LV sys. diameter/BSA (cm/m^2): 1.5 LA A2 area: 26.1 cm2 RA long axis: 4.8 cm LA A4 area: 17.0 cm2 RA area: 12.2 cm2 LA length (vol): 5.5 cm RA vol: 26.7 ml LA vol: 68.9 ml RA : 10.8 ml/m2 LA vol index: 28.0 ml/m2 IVC diam: 2.2 cm RVD1 (basal): 4.9 cm RVD2 (mid): 3.7 cm TAPSE: 2.8 cm Doppler Measurements & Calculations Ao V2 max: 142.9 cm/sec LVOT Max Vidal: 115.2 cm/sec Ao V2 mean: 98.6 cm/sec LV V1 max P.3 mmHg Ao max P.2 mmHg LV V1 VTI: 25.1 cm Ao mean P.3 mmHg JAVIER(I,D): 4.2 cm2 Ao V2 VTI: 30.0 cm JAVIER(V,D): 4.0 cm2 sev ratio: 0.84 JAVIER indexed to BSA (cm^2/m^2): 1.7 AI P1/2t: 577.2 msec AI dec slope: 264.1 cm/sec2 MV E max vidal: 42.6 cm/sec TR max vidal: 249.1 cm/sec MV A max vidal: 68.7 cm/sec TR max P.8 mmHg MV E/A: 0.62 PA V2 max: 111.0 cm/sec Med Peak E' Vidal: 3.4 cm/sec PA V2 mean: 75.7 cm/sec E/E' med: 12.5 PA mean P.6 mmHg Lat Peak E' Vidal: 4.4 cm/sec PA pr(Accel): 31.0 mmHg E/E' lat: 9.7 E/e' average: 11.1 MV dec time: 0.36 sec SV(LVOT): 125.6 ml Reading Physician:11:04 PM
--- NOTE | 2024-08-30 13:17 | DI.CT.S_ITS ---
PROCEDURE: CT ANGIO CHEST INDICATIONS: ASCENDING AORTA ENLARGEMENT TECHNIQUE: After the administration of intravenous contrast, 2 mm thick sections acquired from the pulmonary apices to the posterior costophrenic angles. 3-dimensional maximum intensity projection (MIP) coronal and sagittal reformats were then acquired through the thorax. For radiation dose reduction, the following was used: automated exposure control, adjustment of mA and/or kV according to patient size. COMPARISON: [facility], CT, CT ANGIO CHEST, 09/04/2023, 11:13. FINDINGS: Image quality: Diagnostic. Aorta: Ascending aorta measures 5.4 cm, previously 5.2 cm on 09/04/2023. Aortic sinus measures 4.6 cm, unchanged from prior. Lower Neck: No enlarged lymph nodes. Thyroid: No thyroid nodules which require sonographic follow up, per consensus guidelines. Axillae: No enlarged lymph nodes. Chest Wall: Unremarkable. Bones: Unremarkable. Lungs and Pleura: No pneumothorax or pleural effusions. Stable pulmonary micro nodules. Heart: Heart size is normal. No pericardial effusion. Thoracic Vessels: No aortic aneurysm. Mediastinum and Izabel: No enlarged lymph nodes. Esophagus: No wall thickening. No hiatal hernia. Upper Abdomen: Visualized upper abdomen solid organs and bowel loops appear normal. IMPRESSION: Slight interval dilation of the ascending aorta measuring 5.4 cm, previously 5.2 cm. This has a moderate risk of rupture and vascular surgery referral should be considered if not already followed. Dictated by: Henri Shipley M.D. on 08/30/2024 at 16:37 Approved by: Henri Shipley M.D. on 08/30/2024 at 16:39
[2024-08-30 13:47] LABS: Estimated Glomerular Filt Rate > 60 mL/min (>60)
== END ==
PROVIDERS: Radiology Diagnostic Radiology; Family Provider Family Medicine; PCP Family Medicine; Referring Provider Family Medicine; Visit Provider Internal Medicine Cardiovascular Disease
DX: I08.2 Rheumatic disorders of both aortic and tricuspid valves (principal); I77.89 Other specified disorders of arteries and arterioles; I77.810 Thoracic aortic ectasia
CPT/HCPCS: 36415; 71275; 82565; 93306; Q9967